=== PATIENT | male | born 1970 | race Caucasian/White ===

== ENCOUNTER 2016-10-23 14:19 | Emergency (ER) | payer MEDICAID, OTHER ==
[~2016-10-23] VITALS: Ht 182.9 cm; Wt 115.0 kg
[~2016-10-23 14:19] MED LIST: CYCL-36 PO; IBUP-232 PO; OXYC-360 PO; PRIL20TA2; PROP80TA; [UNRECOGNIZED DRUG - REMARK] PO
[2016-10-23 14:24] VITALS: BP 139/86; PULSE 75; RESP 15; TEMP 97.8; O2SAT 96
--- NOTE | 2016-10-23 14:51 | PD ---
HPI Chief Complaint: Back/ Neck Pain or Injury Time Seen by Provider: 14:51 Travel History International Travel<30 days: No Contact w/Intl Traveler<30days: No Traveled to known affect area: No History of Present Illness HPI 46-year-old male presents to the emergency Department with complaint of lower back pain since yesterday. He denies trauma, strain, fall. Has history of chronic low back pain with fusion of the L3 4 and 5, degenerative disc disease, disc herniation, and narrowing of the spinal canal. Says he has not had back pain like this before until prior to his surgery. Denies encopresis, incontinence, saddle anesthesias. Reports paresthesias to his hands and feet but this is unchanged and normal for him. Denies loss of sensation, decreased range of motion, decreased strength to all extremities. Denies IV drug use. Denies cancer. Denies fever, chills, nausea, vomiting, abdominal pain. Took a Percocet and tramadol with no relief of symptoms. Pain is aggravated with standing up straight and movement. No known relieving factors. No known allergies. Establish primary care provider is Dr. marks. No other modifying factors or associated signs and symptoms. REPLACED BY [facility] Past Medical History GERD: Yes Hypertension: Yes Social History Alcohol Use: Yes (SOCIALLY) Tobacco Use: Yes (1/2 PPD) Substance Use: No Allergies-Medications (Allergen,Severity, Reaction): Coded Allergies: No Known Allergies (Verified , 10/23/16) Reported Meds & Prescriptions Reported Meds & Active Scripts Active Review of Systems Except as stated in HPI: all other systems reviewed are Neg Physical Exam Narrative GENERAL: Well-nourished, well-developed male patient, in no acute distress; appears painful; afebrile, nontoxic-appearing SKIN: Warm and dry. HEAD: Atraumatic. Normocephalic. EYES: Pupils equal and round. No scleral icterus. No injection or drainage. ENT: Mucosa pink and moist. Airway patent. NECK: Trachea midline. CARDIOVASCULAR: Regular rate. RESPIRATORY: No accessory muscle use. GASTROINTESTINAL: Abdomen soft, non-tender, nondistended. Positive bowel sounds. No hepato-splenomegaly, or palpable masses. No guarding. MUSCULOSKELETAL: Bilateral lower extremities supple and non-tense with 2+ pedal pulses and sensory intact; with full range of motion and 5/5 strength. 2 + DTRs bilaterally. Active dorsiflexion and extension of bilateral feet. Bilateral straight leg raise is positive for low back pain. Ambulatory with guarded gait. Sitting up in bed at 90. No obvious deformities. No clubbing. No cyanosis. No edema. BACK: Midline point tenderness on palpation of the lumbar spine; surgical scar noted to area with reproducible tenderness. Tenderness on palpation of bilateral paraspinal lumbar area. No obvious deformities. NEUROLOGICAL: Awake and alert. Oriented 3. No obvious cranial nerve deficits. Motor grossly within normal limits. Normal speech. Moves all extremities. 5/5 strength to all extremities. Sensory intact. PSYCHIATRIC: Appropriate mood and affect; insight and judgment normal. Data Data Last Documented VS Vital Signs Date Time Temp Pulse Resp B/P Pulse Ox O2 Delivery O2 Flow Rate FiO2 10/23/16 14:24 97.8 75 15 139/[address] Lumb Spine W/O Contrast (10/23/16 ) Ketorolac Inj (Toradol Inj) (10/23/16 15:00) Orphenadrine Inj (Norflex Inj) (10/23/16 15:00) MDM Medical Decision Making Medical Screen Exam Complete: Yes Emergency Medical Condition: Yes Medical Record Reviewed: Yes Differential Diagnosis Acute exacerbation of chronic low back pain, disc herniation, low back strain Narrative Course 46-year-old male with history of chronic low back pain, with history of low back surgery, with exacerbation of low back pain since yesterday. Denies injury , strain. Denies IV drug use. Denies cancer. Midline point tenderness on palpation of the lumbar spine over the surgical scar. Toradol and Norflex ordered. CT lumbar spine ordered. 1545: CT lumbar spine with no acute findings. Ibuprofen and Robaxin prescribed for home. Patient verbalizes understanding and agreement with treatment plan. Patient is medically cleared and stable for discharge. Discussed reasons to return to the emergency department. Instructed patient to follow up with primary care provider. Patient agrees with treatment plan. The patients vital signs are stable and the patient is stable for outpatient follow- up and treatment. Patient discharged home, stable and in no acute distress. Diagnosis Primary Impression: Acute exacerbation of chronic low back pain Referrals: Primary Care Physician Patient Instructions: Acute Low Back Pain (ED), General Instructions, Muscle Spasm (ED) Departure Forms: Tests/Procedures, Work Release Enter return to work date: Oct 26, 2016 Additional Instructions: Tylenol or ibuprofen as directed and as needed for pain Robaxin as prescribed and as needed for muscle spasms Heating pad and/or ice to affected area to reduce pain Avoid aggravating activities; increase activity as tolerated Follow-up with primary care provider Return to emergency department immediately with worsening of symptoms Med/Other Pt SpecificInfo: Prescription(s) given Scripts Ibuprofen 800 Mg [id number] Mg PO Q6HR PRN (PAIN) #30 TAB Ref 0 Prov:Mary Bentley 10/23/16 Methocarbamol (Robaxin)500 Mg [id number] Mg PO QID PRN (MUSCLE SPASM) #30 TAB Ref 0 Prov:Mary Bentley 10/23/16 Disposition: 01 DISCHARGE HOME Condition: Stable Mary Bentley Oct 23, 2016 14:51
[2016-10-23] MEDS ORDERED: KETOROLAC TROMETHAMINE 60 MG/2 ML (IM) VIAL IM ONE (15:00)
[2016-10-23] MEDS ORDERED: ORPHENADRINE INJ 60 MG/2 ML AMP IM ONE (15:00)
--- NOTE | 2016-10-23 15:40 | RADRPT ---
EXAM DATE/TIME: 10/23/2016 15:11 [facility] COMPARISON: No previous studies available for comparison. INDICATIONS : Back pain, no injury. RADIATION DOSE: 35.68 CTDIvol (mGy) MEDICAL HISTORY : Hypertension. Gastroesophageal reflux disease. SURGICAL HISTORY : Lumbar fusion x2, most recent 3 years ago. ENCOUNTER: Initial ACUITY: 1 day PAIN SCALE: 5/10 LOCATION: Paraspinal TECHNIQUE: Volumetric scanning of the lumbar spine was performed. Multiplanar reconstructions in the sagittal, coronal and oblique axial planes were performed. Using automated exposure control and adjustment of the mA and/or kV according to patient size, radiation dose was kept as low as reasonably achievable t o obtain optimal diagnostic quality images. FINDINGS: Alignment: Lumbar alignment is intact without evidence of listhesis. Osseous structures and facet joints: Postsurgical changes are noted following laminectomy and fusion from L3-L5. There are parallel rods w ith transpedicular fixating screws. Cages are identified in the L3-4 and L4-5 disc spaces. Fusion isaiah aratus appears intact. There are no destructive bone changes or evidence of acute fracture. Intervertebral disc spaces: The L1-2, L2-3 and L5-S1 intervertebral disc are unremarkable. Spinal canal at the L3-4 and L4-5 leve ls are obscured by metallic artifact. Neurologic structures: No evidence of definable epidural or intradural abnormality. CONCLUSION: Status post lumbar fusion from L3-L5. No evidence of acute abnormality. Findings discussed above. Robert Munoz MD on October 23, 2016 at 15:31 Board Certified Radiologist. This report was verified electronically.
[2016-10-23] MEDS ORDERED: IBUP800T23 PO (15:47)
[2016-10-23] MEDS ORDERED: ROBA500T PO (15:47)
== END 2016-10-23 16:29 | disposition home or self-care (01) ==
LOC: NETRI 14:19
DX: M54.5 Low back pain (principal); F17.210 Nicotine dependence, cigarettes, uncomplicated; I10 Essential (primary) hypertension; K21.9 Gastro-esophageal reflux disease without esophagitis
CPT/HCPCS: 72131; 96372; 99283; J1885; J2360